=== PATIENT | male | born 1990 ===

== ENCOUNTER 2017-01-25 12:58 | Emergency (ER) | payer MEDICAID ==
[2017-01-25 13:08] VITALS: BP 111/62; PULSE 84; RESP 16; TEMP 98; O2SAT 100
[2017-01-25 13:09] VITALS: BMI 20.2
--- NOTE | 2017-01-25 13:36 | ED PDOC ---
HPI: Wound Care - HPI Time Seen by Provider: 01/25/17 13:08 Chief Complaint (Nursing): Wound Check Chief Complaint (Provider): Wound check History Per: Patient Exam Limitations: no limitations Onset/Duration Of Symptoms: Days Current Symptoms Are (Timing): Still Present Quality Of Symptoms: Other (bleeding) Additional History Per: Patient Additional Complaint(s): 26 y/o male who sustained a right upper arm laceration 7 days ago, he did have sutures placed at that time at [facility], however they have been pulling out and the wound is opening and bleeding. No drainage or fever. Patient was seen here yesterday for the same. No other complaints at this time. Past Medical History Vital Signs: Last Vital Signs Temp 98 F 01/25/17 13:08 Pulse 84 01/25/17 13:08 Resp 16 01/25/17 13:08 BP 111/62 01/25/17 13:08 Pulse Ox 100 01/25/17 13:08 - Family History Family History: States: Unknown Family Hx - Immunization History Hx Tetanus Toxoid Vaccination: Yes Hx Influenza Vaccination: No Hx Pneumococcal Vaccination: No - Home Medications Home Medications: Ambulatory Orders Medication Instructions Recorded Cephalexin [Keflex] 500 mg PO BID #14 capsule 01/18/17 Naproxen 375 mg PO BID PRN #20 tablet 01/18/17 Sulfamethoxazole/Trimethoprim 1 tab PO BID #14 tab 01/18/17 [Bactrim DS 800 mg-160 mg] - Allergies Allergies/Adverse Reactions: Allergies Allergy/AdvReac Type Severity Reaction Status Date / Time No Known Allergies Allergy Verified 01/25/17 13:07 Review of Systems Constitutional: Negative for: Fever Skin: Positive for: Lesions (laceration) Physical Exam - Reviewed Nursing Documentation Reviewed: Yes Vital Signs Reviewed: Yes - Physical Exam Appears: Positive for: Well, No Acute Distress Head Exam: Positive for: ATRAUMATIC, NORMAL INSPECTION, NORMOCEPHALIC Skin: Positive for: Normal Color (1cm laceration and 3cm hematoma underneath laceration) Eye Exam: Positive for: Normal appearance ENT: Positive for: Normal ENT Inspection Neck: Positive for: Normal, Painless ROM Respiratory: Negative for: Respiratory Distress Back: Positive for: Normal Inspection Extremity: Positive for: Normal ROM Neurologic/Psych: Positive for: Alert - ECG O2 Sat by Pulse Oximetry: 100 Pulse Ox Interpretation: Normal Medical Decision Making Medical Decision Making: Time: 13:25 Initial Plan: -- Suture removal Time:13:52 Initial Plan: -- Tylenol 650mg PO There is one suture present, however it is pulling and under tension. The suture will be removed today. Dressing reapplied. Clinical Impression: Laceration and Hematoma Upon provider evaluation patient is medically stable, and requires no further treatment in the ED at this time. Patient will be discharged home. Counseling was provided and all questions were answered regarding diagnosis and need for follow up with PMD. There is agreement to discharge plan. Return if symptoms persist or worsen. Scribe Attestation: Documented by Martha Campa, acting as a scribe for Jaimie Metzger PA-C Provider Scribe Attestation: All medical record entries made by the Scribe were at my direction and personally dictated by me. I have reviewed the chart and agree that the record accurately reflects my personal performance of the history, physical exam, medical decision making, and the department course for this patient. I have also personally directed, reviewed, and agree with the discharge instructions and disposition. Disposition - Clinical Impression Clinical Impression: Visit for wound check, Visit for suture removal - Disposition Disposition: Routine/Home Disposition Time: 13:49 Condition: STABLE Instructions: Stitches Removal (ED) Forms: [employer] (German)
== END 2017-01-25 14:01 | disposition home or self-care (01) ==
LOC: H.ER 12:58
DX: Z48.02 Encounter for removal of sutures (principal)